=== PATIENT | female | born 1990 ===

== ENCOUNTER → 2018-06-10 | Outpatient (CLI) | payer OTHER ==
--- NOTE | 2018-06-10 15:50 | REP ---
LUMBAR SPINE, SEVEN VIEWS: HISTORY: Back pain. There is no acute fracture or subluxation. The L4-5 intervertebral disc is decreased in height consistent with disc degeneration. The facet joints are normal in appearance. IMPRESSION: Degenerative change as described above. Electronically Signed by Gunnar Funez MD 06/10/2018 03:50 P
== END ==
LOC: M SMT 10:57
PROVIDERS: ATTEND Physician Assistant
DX: M51.36 Other intervertebral disc degeneration, lumbar region (principal)